=== PATIENT | male | born 1935 | race Caucasian/White ===

== ENCOUNTER 2017-01-05 11:10 | Outpatient (CLI) ==
[2015-08-19 13:07] VITALS: BMI 26.6
--- NOTE | 2017-01-05 11:39 | DI ---
EXAM: Left knee three-view HISTORY: Left knee pain, question patellar fracture COMPARISON: None FINDINGS: No fracture or dislocation. Minimal retropatellar osteophytes. Mild narrowing medial co mpartment. Chondrocalcinosis medial and lateral compartments. Prepatellar soft tissue swelling. No joint effusion. Atherosclerotic vascular calcification. IMPERSSION: 1. No fracture or dislocation. 2. Mild osteoarthritis. Chondrocalcinosis 3. Prepatellar soft tissue swelling. 4. Atherosclerosis
== END 2017-01-05 11:11 | disposition home or self-care (01) ==
LOC: RAD 11:10
PROVIDERS: ATTEND Family Medicine
DX: M25.562 Pain in left knee (principal)